=== PATIENT | female | born 1985 | race African-American/Black ===

== ENCOUNTER 2020-06-01 01:54 | Emergency (ER) | payer OTHER ==
[~2020-06-01] VITALS: Ht 160 cm; Wt 102.0 kg
[2020-06-01] MEDS ORDERED: KETOROLAC 30MG/ML VIAL IM ONE (03:15)
[2020-06-01 03:45] VITALS: BP 114/81
== END 2020-06-01 04:00 | disposition home or self-care (01) ==
LOC: ER 01:54
DX: M54.5 Low back pain (principal); R20.0 Anesthesia of skin; F17.200 Nicotine dependence, unspecified, uncomplicated; I49.9 Cardiac arrhythmia, unspecified; Z98.890 Other specified postprocedural states
CPT/HCPCS: 81025; 93005; 96372; 99283; J1885